=== PATIENT | female | born 2000 | race Two or more races ===

== ENCOUNTER 2022-11-26 13:51 | Emergency (ER) | payer MEDICAID ==
[~2022-11-26] VITALS: Ht 157.5 cm; Wt 55.0 kg
[2022-11-26 14:01] VITALS: BP 107/67
[2022-11-26 17:35] LABS: BASOPHILS % 0.1 % (0.0-2.0); EOSINOPHILS % 0.2 % (0.0-5.0); HEMOGLOBIN. 13.8 g/dL (12.0-16.0); LYMPHOCYTES % 17.4 % (20.0-50.0); MEAN CORPUSCULAR HEMOGLOBIN 27.5 pg (28.0-32.0); MEAN CORPUSCULAR VOLUME 81.9 fL (81.0-99.0); MONOCYTES % 5.9 % (2.0-8.0); NEUTROPHILS % 76.4 % (40.0-76.0); PLATELET 279 x1000/uL (130-400); RED BLOOD CELL COUNT 5.01 mill/uL (4.2-5.4); RED CELL DISTRIBUTION WIDTH 14.2 % (11.6-14.6)
[2022-11-26 17:44] LABS: CLARITY URINE CLEAR (CLEAR); COLOR URINE YELLOW (YELLOW); KETONES URINE 4+ (NEGATIVE); LEUKOCYTE ESTERASE URINE NEGATIVE (NEGATIVE); NITRITE URINE NEGATIVE (NEGATIVE); OCCULT BLOOD URINE TRACE (NEGATIVE); PH URINE 5.5 (4.5-8.0); PROTEIN URINE TRACE (NEGATIVE); SPECIFIC GRAVITY URINE 1.032 (1.005-1.030); UROBILINOGEN URINE 0.2 E.U./dL (0.2-1.0)
[2022-11-26 17:46] LABS: INR 1.1; PROTHROMBIN TIME 11.9 sec (9.6-11.0)
[2022-11-26 17:52] LABS: CHLORIDE 104 mEq/L (98-107)
[2022-11-26 18:14] LABS: B-HCG QUANTITATIVE 42066 mIU/mL (<3)
[2022-11-26] MEDS ORDERED: METOCLOPRAMIDE HCL 10MG TABLET PO ONE (19:15)
[2022-11-26] MEDS ORDERED: CEPH250C2 MT (23:07)
[2022-11-26] MEDS ORDERED: METO-293 MT (23:07)
== END 2022-11-26 23:16 | disposition home or self-care (01) ==
LOC: ER 13:51
DX: O21.9 Vomiting of pregnancy, unspecified (principal); Z3A.01 Less than 8 weeks gestation of pregnancy
CPT/HCPCS: 36415; 76770; 76801; 76857; 80053; 81003; 81025; 84702; 85025; 85610; 86850; 86900; 86901; 99284; J8597